=== PATIENT | male | born 1965 | race Hispanic/Latino ===

== ENCOUNTER 2016-07-06 18:57 | Emergency (ER) | payer SELFPAY ==
[2016-07-07] MEDS ORDERED: NORCO 5/325 PO ONE (00:24)
[2016-07-07] MEDS ORDERED: MOTRIN PO ONE (00:24)
--- NOTE | 2016-07-07 00:25 | Emergency Department Report ---
Upper Extremity - [facility] Chief Complaint: Extremity Injury, Upper Stated Complaint: SHOULDER/RIP/INJURY FELL THRW ROOF Time Seen by Provider: 07/07/16 00:23 Upper Extremity: Left Shoulder Occurred When: 5 Days Mechanism: Fall Severity: severe Symptoms: Yes Pain with Movement, Yes Limited Range of Movement, No Deformity, No Numbness, No Weakness, No Swelling, No Bruising/Ecchymosis, No Laceration or Abrasion Other History: Patient reports that he fell through the roof of a tractor- trailer and landed on his left side onto a hardwood floor. He c/o left ribs and left shoulder pain ED Review of Systems ROS: Stated complaint: SHOULDER/RIP/INJURY FELL THRW ROOF Other details as noted in HPI Constitutional: denies: chills, diaphoresis, fever, malaise, weakness Eyes: denies: eye pain, eye discharge, vision change ENT: denies: ear pain, throat pain, dental pain, hearing loss, epistaxis, congestion Respiratory: shortness of breath (with inhaling). denies: cough, orthopnea, SOB with exertion, SOB at rest, stridor, wheezing Cardiovascular: chest pain (left side). denies: palpitations, dyspnea on exertion, orthopnea, edema, syncope, paroxysmal nocturnal dyspnea Gastrointestinal: denies: abdominal pain, nausea, vomiting, diarrhea, constipation Musculoskeletal: arthralgia (left shoulder). denies: back pain, joint swelling , myalgia Skin: denies: rash, lesions, change in color, change in hair/nails, pruritus Neurological: denies: headache, weakness, numbness, paresthesias, confusion, abnormal gait, vertigo Hematological/Lymphatic: denies: easy bleeding, swollen glands ED Past Medical Hx - Medications Home Medications: Home Medications Medication Instructions Recorded Confirmed Last Taken Type HYDROcodone/APAP 5-325 [[place] 1 each PO Q6HR PRN #10 tablet 07/07/16 Unknown Rx 5/325] Ibuprofen [Motrin 800 MG tab] 800 mg PO Q8HR PRN #30 tablet 07/07/16 Unknown Rx Upper Extremity Exam - Exam General: Vital signs noted. No distress. Alert and acting appropriately. Cardio: Heart sounds present S1-S2, no murmur, gallops or ectopy Respiratory: Even and unlabored, lungs clear to auscultate bilateral upper and lower lobes, chest symmetry with respirations, no wheezing, rales or rhonchi Head and Torso: Yes Chest/Lungs Abnormality (reproducible chest wall tenderness with palpation), No HEENT Abnormality, No Neck Tenderness, No Abdominal Tenderness, No Back Tenderness Shoulder Exam: Yes Shoulder Tenderness (left deltoid with palpation), Yes Normal Range of Motion in Shoulder (limited to pain, no vascular compromise, pallor, pulse deficits), No Clavicle Tenderness, No Shoulder Deformity, No AC Joint Tenderness Arm Exam: No Arm/Humerus Tenderness, No Arm Deformity Elbow: No Elbow Tenderness, No Normal Range of Motion in Elbow, No Elbow Deformity Forearm: No Forearm Tenderness, No Forearm Deformity, No Pain with Pronation, No Pain with Supination Wrist: Yes Normal ROM in Wrist, No Wrist Tenderness, No Wrist Deformity, No Snuffbox Tenderness, No Pain with Axial Thumb Compression Hand: Yes Normal ROM in Digit(s), No Hand Tenderness, No Hand Deformity, No Digit Tenderness, No Digit(s) Deformity, No Tendon Dysfunction CMS Exam: No Broken Skin, No Normal Distal Pulses, No Normal Capillary Refill, No Normal Distal Sensation ED Course Vital Signs 07/06/16 19:27 Temperature 98.5 F Pulse Rate 92 H Blood Pressure 175/104 O2 Sat by Pulse 97 Oximetry - Reevaluation(s) Reevaluation #1: 07/07/16 02:30 pain medication, analgesic and radiology studies ordered ED Medical Decision Making - Lab Data Vital Signs 07/06/16 07/07/16 07/07/16 19:27 00:45 00:46 Temperature 98.5 F Pulse Rate 92 H Respiratory 20 20 Rate Blood Pressure 175/104 O2 Sat by Pulse 97 Oximetry Vital Signs 07/06/16 07/07/16 07/07/16 19:27 00:45 00:46 Temperature 98.5 F Pulse Rate 92 H Respiratory 20 20 Rate Blood Pressure 175/104 Blood Pressure [Right] O2 Sat by Pulse 97 Oximetry 07/07/16 03:47 Temperature 97.9 F Pulse Rate 82 Respiratory 20 Rate Blood Pressure Blood Pressure 134/85 [Right] O2 Sat by Pulse 95 Oximetry - Radiology Data Radiology results: image reviewed PROCEDURE: XR RIBS UNILAT 2V LT TECHNIQUE: LEFT rib radiographs, 3 views of the ribs, including PA chest. HISTORY: left rib pain/fall COMPARISON: No prior studies are available for comparison. FINDINGS: Heart: The heart appears slightly enlarged. Mediastinum/Vessels: Normal. Lungs: There is suboptimal inspiration with bilateral discoid atelectasis at the lung bases. There are no infiltrates or contusions. Pleural space: There are no effusions or pneumothoraces. Pneumothorax: None. Bony thorax/ribs: There is a fracture of left rib 8. Ribs are otherwise unremarkable. IMPRESSION: Left 8th rib fracture. There is no pulmonary contusion, effusion or pneumothorax. Left Shoulder XR IMPRESSION: Normal Examination - Medical Decision Making During the course of ED, pain medication, analgesics and radiology studies were ordered. Imaging studies revealed left 8th rib fracture. There is no pulmonary contusion, effusion or pneumothorax. Also, left shoulder x-ray revealed no acute fractures. Patient was sent home with instructions on how to use her incentive spirometer 10 times a day, prescriptions for [place] and Ibuprofen, instructed to follow with selective referrals given at discharge, he verbalize understanding - Differential Diagnosis Left rib fracture, Pulmonary Contusion, Left Shoulder Pain Critical care attestation.: If time is entered above; I have spent that time in minutes in the direct care of this critically ill patient, excluding procedure time. ED Disposition Clinical Impression: Left rib fracture Qualifiers: Encounter type: initial encounter Rib fracture type: single rib Fracture type: closed Qualified Code(s): S22.32XA - Fracture of one rib, left side, initial encounter for closed fracture Left shoulder pain Qualifiers: Chronicity: acute Qualified Code(s): M25.512 - Pain in left shoulder Disposition: DISCHARGED TO HOME OR SELFCARE Is pt being admited?: No Does the pt Need Aspirin: No Condition: Stable Instructions: Rib Fracture (ED), Arthralgia (ED) Additional Instructions: Take medication as directed. No drinking and driving while taking medication. Use the incentive spirometer 10 times a day in order to prevent infection. Follow with the selective referrals given at discharge. Return back to the ED for worsening symptoms or concerns such as shortness of breath, increased pain, and adequate pain control, fever or cough. Prescriptions: Ibuprofen [Motrin 800 MG tab] 800 mg PO Q8HR PRN #30 tablet PRN Reason: Pain, Moderate (4-6) HYDROcodone/APAP 5-325 [[place] 5/325] 1 each PO Q6HR PRN #10 tablet PRN Reason: Pain , Severe (7-10) Referrals: PRIMARY CARE, [Primary Care Provider] - 3-5 Days [facility] MD [Staff Physician] - 3-5 Days Forms: Work/School Release Form(ED) Time of Disposition: 02:43
--- NOTE | 2016-07-07 02:21 | XRay Report ---
FINAL REPORT PROCEDURE: XR RIBS UNILAT 2V LT TECHNIQUE: LEFT rib radiographs, 3 views of the ribs, including PA chest. HISTORY: left rib pain/fall COMPARISON: No prior studies are available for comparison. FINDINGS: Heart: The heart appears slightly enlarged. Mediastinum/Vessels: Normal. Lungs: There is suboptimal inspiration with bilateral discoid atelectasis at the lung bases. There are no infiltrates or contusions. Pleural space: There are no effusions or pneumothoraces. Pneumothorax: None. Bony thorax/ribs: There is a fracture of left rib 8. Ribs are otherwise unremarkable. IMPRESSION: Left 8th rib fracture. There is no pulmonary contusion, effusion or pneumothorax.
--- NOTE | 2016-07-07 02:25 | XRay Report ---
FINAL REPORT PROCEDURE: XR SHOULDER 2 LT TECHNIQUE: Left shoulder radiographs including AP views in internal and external rotation and abduction. CPT 23389 HISTORY: left shoulder pain/fall COMPARISON: No prior studies are available for comparison. FINDINGS: Fracture (s) and/or Dislocation(s): None . Joint space(s): Normal . Soft tissues: Normal . Bone mineralization: Normal . Foreign bodies: None . IMPRESSION: Normal Examination
[2016-07-07 03:50] VITALS: BP 134/85
== END 2016-07-07 03:55 | disposition home or self-care (01) ==
LOC: ED 18:57
DX: S22.32XA Fracture of one rib, left side, initial encounter for closed fracture (principal); M25.512 Pain in left shoulder; W17.89XA Other fall from one level to another, initial encounter; Y93.9 Activity, unspecified; Y99.9 Unspecified external cause status; Y92.89 Other specified places as the place of occurrence of the external cause
CPT/HCPCS: 99283

== ENCOUNTER 2017-10-02 05:03 | Emergency (ER) | payer OTHER ==
--- NOTE | 2017-10-02 10:33 | Emergency Department Report ---
ED General Adult HPI - General Chief complaint: Upper Respiratory Infection Stated complaint: FLU SYMPTOMS Time Seen by Provider: 10/02/17 10:09 Source: patient Mode of arrival: Ambulatory Limitations: No Limitations - History of Present Illness Initial comments: This is a 52 y.o. male that presents with productive cough, diarrhea, nausea, chills, and body aches for 2 weeks. Patient reports symptoms started 2 weeks ago and improved with advil. His spouse had the flu and he think he caught it from her. He has not tried taking OTC cold and flu medication. He is having generalized abdominal pain with cramping during bowel movements. Denies fever, SOB, chest pain, vomiting, diarrhea odor, and weakness. -: week(s) (2) Location: abdomen (generalized) Radiation: non-radiation Severity scale (0 -10): 6 Quality: aching, other (cramping) Consistency: intermittent Improves with: other (bowel movement) Worsens with: none Associated Symptoms: cough, fever/chills, nausea/vomiting (nausea w/o vomiting) . denies: confusion, chest pain, diaphoresis, headaches, loss of appetite, malaise, rash, seizure, shortness of breath, syncope, weakness Treatments Prior to Arrival: NSAID - Related Data Previous Rx's Medication Instructions Recorded Last Taken Type HYDROcodone/APAP 5-325 [[place] 1 each PO Q6HR PRN #10 tablet 07/07/16 Unknown Rx 5/325] Ibuprofen [Motrin 800 MG tab] 800 mg PO Q8HR PRN #30 tablet 07/07/16 Unknown Rx Benzonatate [Tessalon Perles] 100 mg PO Q8HR PRN #30 capsule 10/02/17 Unknown Rx Loperamide HCl [Imodium A-D] 2 mg PO TID PRN #15 tablet 10/02/17 Unknown Rx Loratadine [Claritin] 10 mg PO DAILY #30 tablet 10/02/17 Unknown Rx Allergies Allergy/AdvReac Type Severity Reaction Status Date / Time No Known Allergies Allergy Verified 07/06/16 19:27 ED Review of Systems ROS: Stated complaint: FLU SYMPTOMS Other details as noted in HPI Constitutional: chills, fever. denies: malaise, weakness ENT: congestion. denies: ear pain, throat pain, dental pain, hearing loss, epistaxis Respiratory: cough. denies: orthopnea, shortness of breath, stridor, wheezing Cardiovascular: denies: chest pain, palpitations, dyspnea on exertion, orthopnea , syncope Gastrointestinal: abdominal pain (generalized), nausea. denies: vomiting, diarrhea Musculoskeletal: myalgia (generalized body aches). denies: back pain, joint swelling, arthralgia Neurological: denies: headache, weakness, numbness, paresthesias, abnormal gait Psychiatric: denies: anxiety, depression ED Past Medical Hx - Past Medical History Previous Medical History?: No - Surgical History Past Surgical History?: No - Social History Smoking Status: Current Every Day Smoker - Medications Home Medications: Home Medications Medication Instructions Recorded Confirmed Last Taken Type HYDROcodone/APAP 5-325 [[place] 1 each PO Q6HR PRN #10 tablet 07/07/16 Unknown Rx 5/325] Ibuprofen [Motrin 800 MG tab] 800 mg PO Q8HR PRN #30 tablet 07/07/16 Unknown Rx Benzonatate [Tessalon Perles] 100 mg PO Q8HR PRN #30 capsule 10/02/17 Unknown Rx Loperamide HCl [Imodium A-D] 2 mg PO TID PRN #15 tablet 10/02/17 Unknown Rx Loratadine [Claritin] 10 mg PO DAILY #30 tablet 10/02/17 Unknown Rx ED Physical Exam - General Limitations: No Limitations General appearance: alert, in no apparent distress - ENT ENT exam: Present: mucous membranes moist, TM's normal bilaterally. Absent: normal orophraynx (turbinates congested, clear discharge) - Respiratory Respiratory exam: Present: normal lung sounds bilaterally. Absent: respiratory distress, wheezes, rales, rhonchi, stridor, chest wall tenderness - Cardiovascular Cardiovascular Exam: Present: regular rate, normal rhythm, normal heart sounds. Absent: bradycardia, tachycardia, irregular rhythm, systolic murmur, diastolic murmur, rubs, gallop - GI/Abdominal GI/Abdominal exam: Present: soft, tenderness (RLQ tenderness, no guarding or rebound tenderness), normal bowel sounds. Absent: distended, guarding, rebound , rigid, organomegaly, mass - Neurological Exam Neurological exam: Present: alert, oriented X3, normal gait - Psychiatric Psychiatric exam: Present: normal affect, normal mood. Absent: depressed, anxious, flat affect, manic - Skin Skin exam: Present: warm, dry, intact, normal color. Absent: rash ED Course Vital Signs 10/02/17 10/02/17 07:22 09:52 Temperature 96.8 F L Pulse Rate 80 77 Respiratory 18 18 Rate Blood Pressure 130/86 Blood Pressure 140/84 [Right] O2 Sat by Pulse 98 99 Oximetry ED Medical Decision Making - Lab Data Result diagrams: 10/02/17 10:37 10/02/17 10:37 - Radiology Data Radiology results: report reviewed CT of abdomen/pelvis: Cholelithiasis but no evidence for acute cholecystitis. Mild sigmoid diverticulosis. - Medical Decision Making 52 y.o. male that presents with cough, congestion, body aches, chills, and generalized abdominal pain for 2 weeks. Patient examined by me, no distress noted. Vitals stable. Obtained BMP, CBC and CT of abdomen and pelvis. Patient informed of Cholelithiasis but no evidence for acute cholecystitis. Mild sigmoid diverticulosis. Start benzonatate, loperimide, and loratadine for URI and acute gastroenteritis. F/U with [facility]. Discharged home. Follow up with [facility] in 48-72 hours. Critical care attestation.: If time is entered above; I have spent that time in minutes in the direct care of this critically ill patient, excluding procedure time. ED Disposition Clinical Impression: Gastroenteritis URI (upper respiratory infection) Qualifiers: URI type: acute nasopharyngitis (common cold) Qualified Code(s): J00 - Acute nasopharyngitis [common cold] Diverticulosis Qualifiers: Diverticulosis site: diverticulosis of large intestine Diverticulosis bleeding : diverticulosis without bleeding Qualified Code(s): K57.30 - Diverticulosis of large intestine without perforation or abscess without bleeding Disposition: DC-01 TO HOME OR SELFCARE Is pt being admited?: No Does the pt Need Aspirin: No Condition: Stable Instructions: Diverticulosis (ED), Acute Diarrhea (ED), Upper Respiratory Infection (ED) Additional Instructions: Increase fluid intake and rest. Wash hands frequently. Continue taking tylenol or ibuprofen to control fever. Take imodium A-D for diarrhea to help bulk. F/U with Primary Care Provider in 2-3 days. Return to ER if fever, SOB, or difficulty breathing after 48 hours of supportive care. Prescriptions: Benzonatate [Tessalon Perles] 100 mg PO Q8HR PRN #30 capsule PRN Reason: Cough Loperamide HCl [Imodium A-D] 2 mg PO TID PRN #15 tablet PRN Reason: Diarrhea Loratadine [Claritin] 10 mg PO DAILY #30 tablet Referrals: PRIMARY CARE,MD [Primary Care Provider] - 3-5 Days [facility] [Outside] - 3-5 Days [facility] [Outside] - 3-5 Days [facility] [Outside] - 3-5 Days Forms: Work/School Release Form(ED) Time of Disposition: 12:05 Print Language: LATVIAN
[2017-10-02 10:52] LABS: Hematocrit 48.6 % (35.5-45.6); Hemoglobin 15.8 gm/dl (11.8-15.2); Mean Corpuscular HGB Conc 32 % (32-34); Mean Corpuscular Hemoglobin 30 pg (28-32); Mean Corpuscular Volume 92 fl (84-94); Platelet Count 283 K/mm3 (140-440); Red Cell Distribution Width 13.7 % (13.2-15.2)
[2017-10-02 11:06] LABS: BUN/Creatinine Ratio 26; Blood Urea Nitrogen 13 mg/dL (9-20); Hemolysis Index 18
--- NOTE | 2017-10-02 11:09 | Cat Scan Report ---
CT ABDOMEN PELVIS WITHOUT CONTRAST: HISTORY: Right lower quadrant abdominal pain, diarrhea. COMPARISON: none. TECHNIQUE: Helical CT in 1.25mm intervals without IV contrast. Sagittal and coronal reconstructions. FINDINGS: Lung bases: Normal. Liver: Normal. Biliary system: At least 3 calcified gallstones are identified measuring up to 1.8 cm. No evidence for biliary dilatation or inflammation. The CBD is normal caliber. Pancreas: Normal. Spleen: Normal. Kidneys/ureters/bladder: Normal. Adrenal glands: Normal. Aorta: Normal. Intestines: Unremarkable given no oral contrast was administered. Minimal sigmoid diverticulosis is noted. Appendix: Normal. Pelvic viscera: Normal. Ascites: None. Adenopathy: None. Musculoskeletal: Normal. IMPRESSION: Cholelithiasis but no evidence for acute cholecystitis. Mild sigmoid diverticulosis.
[2017-10-02 12:20] VITALS: BP 134/86
== END 2017-10-02 12:20 | disposition home or self-care (01) ==
LOC: ED 05:03
DX: K52.9 Noninfective gastroenteritis and colitis, unspecified (principal); J06.9 Acute upper respiratory infection, unspecified; K57.90 Diverticulosis of intestine, part unspecified, without perforation or abscess without bleeding; F17.200 Nicotine dependence, unspecified, uncomplicated
CPT/HCPCS: 36415; 74176; 80048; 85027

== ENCOUNTER 2019-06-05 08:38 | Emergency (ER) | payer OTHER ==
[2019-06-05] MEDS ORDERED: IPRATROPIUM/ALBUTEROL SULFATE 3 ML AMPUL.NEB IH ONE (09:04)
--- NOTE | 2019-06-05 09:11 | Emergency Department Report ---
ED General Adult HPI - General Chief complaint: Weakness Stated complaint: WEAK/BODY PAIN Time Seen by Provider: 06/05/19 08:56 Source: patient Mode of arrival: Ambulatory Limitations: No Limitations - History of Present Illness Initial comments: Patient is a 53-year-old male presents emergency room with complaints of generalized body aches that began 2 days ago. He has associated generalized weakness, cramping in his bilateral hands, congestion, mild shortness of breath. He denies any fever, cough, rhinorrhea, chest pain, ear pain, sore throat, any other symptoms. He denies any sick contacts. He denies any past medical history or allergies medications. patient states he is an every day smoker one pack per day. He denies any alcohol use. - Related Data Previous Rx's Medication Instructions Recorded Last Taken Type HYDROcodone/APAP 5-325 [[place] 1 each PO Q6HR PRN #10 tablet 07/07/16 Unknown Rx 5/325] Ibuprofen [Motrin 800 MG tab] 800 mg PO Q8HR PRN #30 tablet 07/07/16 Unknown Rx Benzonatate [Tessalon Perles] 100 mg PO Q8HR PRN #30 capsule 10/02/17 Unknown Rx Loperamide HCl [Imodium A-D] 2 mg PO TID PRN #15 tablet 10/02/17 Unknown Rx Loratadine [Claritin] 10 mg PO DAILY #30 tablet 10/02/17 Unknown Rx Allergies Allergy/AdvReac Type Severity Reaction Status Date / Time No Known Allergies Allergy Verified 07/06/16 19:27 ED Review of Systems ROS: Stated complaint: WEAK/BODY PAIN Other details as noted in HPI Comment: All other systems reviewed and negative ED Past Medical Hx - Past Medical History Previous Medical History?: No - Surgical History Past Surgical History?: No - Social History Smoking Status: Current Every Day Smoker Substance Use Type: None - Medications Home Medications: Home Medications Medication Instructions Recorded Confirmed Last Taken Type HYDROcodone/APAP 5-325 [[place] 1 each PO Q6HR PRN #10 tablet 07/07/16 Unknown Rx 5/325] Ibuprofen [Motrin 800 MG tab] 800 mg PO Q8HR PRN #30 tablet 07/07/16 Unknown Rx Benzonatate [Tessalon Perles] 100 mg PO Q8HR PRN #30 capsule 10/02/17 Unknown Rx Loperamide HCl [Imodium A-D] 2 mg PO TID PRN #15 tablet 10/02/17 Unknown Rx Loratadine [Claritin] 10 mg PO DAILY #30 tablet 10/02/17 Unknown Rx ED Physical Exam - General Limitations: No Limitations General appearance: alert, in no apparent distress - Head Head exam: Present: atraumatic, normocephalic - Eye Eye exam: Present: normal appearance - ENT ENT exam: Present: normal orophraynx, mucous membranes moist, TM's normal bilaterally, normal external ear exam, other (pale turbinates bilaterally) - Neck Neck exam: Present: full ROM. Absent: meningismus - Respiratory Respiratory exam: Present: normal lung sounds bilaterally, decreased breath sounds (slightly decreased throughout). Absent: respiratory distress, wheezes, rales, rhonchi, stridor, chest wall tenderness, accessory muscle use, prolonged expiratory - Cardiovascular Cardiovascular Exam: Present: regular rate, normal rhythm, normal heart sounds. Absent: systolic murmur, diastolic murmur, rubs, gallop - Neurological Exam Neurological exam: Present: alert, oriented X3 - Psychiatric Psychiatric exam: Present: normal affect, normal mood - Skin Skin exam: Present: warm, dry, intact ED Course Vital Signs 06/05/19 06/05/19 08:43 10:59 Temperature 97.7 F 98.0 F Pulse Rate 80 83 Respiratory 15 20 Rate Blood Pressure 165/90 Blood Pressure 148/88 [Right] O2 Sat by Pulse 97 98 Oximetry - Reevaluation(s) Reevaluation #1: 06/05/19 10:19 called the lab awaiting flu swab results, swab was sent by al at 9:04 AM ED Medical Decision Making - Lab Data Result diagrams: 06/05/19 09:07 06/05/19 09:07 Lab Results 06/05/19 06/05/19 06/05/19 Range/Units 09:07 09:07 Unknown WBC 8.5 (4.5-11.0) K/mm3 RBC 5.06 H (3.65-5.03) M/mm3 Hgb 15.6 H (11.8-15.2) gm/dl Hct 46.3 H (35.5-45.6) % MCV 92 (84-94) fl MCH 31 (28-32) pg MCHC 34 (32-34) % RDW 14.1 (13.2-15.2) % Plt Count 208 (140-440) K/mm3 Lymph % (Auto) 21.5 (13.4-35.0) % [place] % (Auto) 5.9 (0.0-7.3) % Eos % (Auto) 2.4 (0.0-4.3) % Baso % (Auto) 0.6 (0.0-1.8) % Lymph # 1.8 (1.2-5.4) K/mm3 [place] # 0.5 (0.0-0.8) K/mm3 Eos # 0.2 (0.0-0.4) K/mm3 Baso # 0.1 (0.0-0.1) K/mm3 Seg Neutrophils % 69.6 (40.0-70.0) % Seg Neutrophils # 5.9 (1.8-7.7) K/mm3 Sodium 138 (137-145) mmol/L Potassium 4.2 (3.6-5.0) mmol/L Chloride 101.3 (98-107) mmol/L Carbon Dioxide 22 (22-30) mmol/L Anion Gap 19 mmol/L BUN 10 (9-20) mg/dL Creatinine 0.6 L (0.8-1.5) mg/dL Estimated GFR > 60 ml/min BUN/Creatinine Ratio 17 % Glucose 88 (75-100) mg/dL Calcium 9.0 (8.4-10.2) mg/dL Phosphorus 3.10 (2.5-4.5) mg/dL Magnesium 2.20 (1.7-2.3) mg/dL Total Creatine Kinase 98 (55-170) units/L Influenza A (Rapid) Negative (Negative) Influenza B (Rapid) Negative (Negative) - Medical Decision Making Patient is a 53-year-old male presents emergency room with complaints of generalized body aches that began 2 days ago. He has associated generalized weakness, cramping in his bilateral hands, congestion, mild shortness of breath. He denies any fever, cough, rhinorrhea, chest pain, ear pain, sore throat, any other symptoms. He denies any sick contacts. He denies any past medical history or allergies medications. patient states he is an every day smoker one pack per day. He denies any alcohol use. Vitals are stable. On exam pale turbinates, mildly decreased breath sounds throughout. Patient given a DuoNeb and patient has good air movement. Labs are stable. CK is normal no signs of rhabdomyolysis. Electrolytes are normal. Influenza is negative. no clinical signs or symptoms of PNA, pt has normal vitals, no leukocytosis, no productive cough. wells criteria is 0 making PE very unlikely. Patient's symptoms and examination consistent with viral URI. Discussed symptomatic treatment and supportive care with patient. advised pt to Please increase your fluid intake over the next several days. May take Zyrtec, Flonase, Mucinex [id number]. May take Tylenol or ibuprofen for any discomfort. May use a humidifier, drink warm tea, eat warm soup broth. Follow-up with a primary care doctor in the next 2-3 days. Return to the emergency room for any new or worsening symptoms. - Differential Diagnosis rhabdomyolysis, dehydration, electrolyte disturbance, influenza, URI, virus Critical care attestation.: If time is entered above; I have spent that time in minutes in the direct care of this critically ill patient, excluding procedure time. ED Disposition Clinical Impression: Generalized body aches, Generalized weakness Upper respiratory infection Qualifiers: URI type: unspecified URI Qualified Code(s): J06.9 - Acute upper respiratory infection, unspecified Disposition: DC-01 TO HOME OR SELFCARE Is pt being admited?: No Does the pt Need Aspirin: No Condition: Stable Instructions: Upper Respiratory Infection (ED), Viral Syndrome (ED) Additional Instructions: Please increase your fluid intake over the next several days. May take Zyrtec, Flonase, Mucinex [id number]. May take Tylenol or ibuprofen for any discomfort. May use a humidifier, drink warm tea, eat warm soup broth. Follow- up with a primary care doctor in the next 2-3 days. Return to the emergency room for any new or worsening symptoms. Referrals: ELEUTERIO FIGUEREDO MD [Staff Physician] - 2-3 Days [facility] [Provider Group] - 2-3 Days Forms: Work/School Release Form(ED) Time of Disposition: 10:43 Print Language: EMIRATI
[2019-06-05 09:25] LABS: Basophils # (Auto) 0.1 K/mm3 (0.0-0.1); Basophils % (Auto) 0.6 % (0.0-1.8); Eosinophils # (Auto) 0.2 K/mm3 (0.0-0.4); Eosinophils % (Auto) 2.4 % (0.0-4.3); Hematocrit 46.3 % (35.5-45.6); Hemoglobin 15.6 gm/dl (11.8-15.2); Lymphocytes # (Auto) 1.8 K/mm3 (1.2-5.4); Lymphocytes % (Auto) 21.5 % (13.4-35.0); Mean Corpuscular HGB Conc 34 % (32-34); Mean Corpuscular Volume 92 fl (84-94); Monocytes # (Auto) 0.5 K/mm3 (0.0-0.8); Monocytes % (Auto) 5.9 % (0.0-7.3); Platelet Count 208 K/mm3 (140-440); Red Blood Count 5.06 M/mm3 (3.65-5.03); Red Cell Distribution Width 14.1 % (13.2-15.2)
[2019-06-05 09:46] LABS: BUN/Creatinine Ratio 17; Blood Urea Nitrogen 10 mg/dL (9-20); Hemolysis Index 5
[2019-06-05 11:01] VITALS: BP 148/88
== END 2019-06-05 10:59 | disposition home or self-care (01) ==
LOC: ED 08:38
DX: J06.9 Acute upper respiratory infection, unspecified (principal); F17.200 Nicotine dependence, unspecified, uncomplicated
CPT/HCPCS: 36415; 80048; 82550; 83735; 84100; 85025; 87400; 99283

== ENCOUNTER 2020-08-23 07:07 | Emergency (ER) | payer OTHER ==
[2020-08-23] MEDS ORDERED: SODIUM CHLORIDE 0.9% 1000 ML 1,000 ML IV ONE (07:45)
[2020-08-23] MEDS ORDERED: ONDANSETRON 4 MG/2 ML INJ IV ONE (07:45)
[2020-08-23] MEDS ORDERED: FAMOTIDINE 20 MG TAB PO ONE (07:46)
[2020-08-23] MEDS ORDERED: ALUM-MAG HYDROXIDE-SIMETHICONE 200-200-20MG/5ML ORAL LIQD 30 ML PO ONE (07:47)
--- NOTE | 2020-08-23 07:48 | Emergency Department Report ---
ED Abdominal Pain HPI - General Chief Complaint: Abdominal Pain Stated Complaint: ABD PAIN/EMESIS/DIARRHEA Time Seen by Provider: 08/23/20 07:45 Source: patient Mode of arrival: Ambulatory Limitations: No Limitations - History of Present Illness Initial Comments: 55-year-old male with a past medical history of hypertension presents to the ER today complaint of epigastric pain. Patient states that has been having this pain intermittently for about 2 weeks. He describes it as a pressure/heaviness/stabbing pain that radiates into the back. He reports associated nausea, vomiting, diarrhea and a bitter taste in his mouth. He states that the pain is worse with food. he denies any chest pain or shortness of breath. He denies any UTI symptoms, fever or chills. He denies any prior history of abdominal surgeries. He does admit to tobacco use and denies alcohol abuse. He also admits to noncompliance with his blood pressure medication for the past 5 years. He denies any heart disease or lung disease MD Complaint: abdominal pain -: Gradual, week(s) (2) Location: epigastric Radiation: back - Related Data Previous Rx's Medication Instructions Recorded Last Taken Type Ibuprofen [Motrin 800 MG tab] 800 mg PO Q8HR PRN #30 tablet 07/07/16 Unknown Rx Benzonatate [Tessalon Perles] 100 mg PO Q8HR PRN #30 capsule 10/02/17 Unknown Rx Loperamide HCl [Imodium A-D] 2 mg PO TID PRN #15 tablet 10/02/17 Unknown Rx Loratadine (Nf) [Claritin (Nf)] 10 mg PO DAILY #30 tablet 10/02/17 Unknown Rx Clotrimazole/Betamethasone Dip 1 applicatio TP BID 10 Days #45 08/23/20 Unknown Rx [Lotrisone Cream] cream..g. Famotidine [Pepcid] 40 mg PO QHS #30 tablet 08/23/20 Unknown Rx HYDROcodone/APAP 5-325 [Cruger 1 each PO Q6HR PRN #10 tablet 08/23/20 Unknown Rx 5-325 mg TAB] Ondansetron [Zofran Odt] 4 mg PO Q8HR PRN #12 tab.rapdis 08/23/20 Unknown Rx Allergies Allergy/AdvReac Type Severity Reaction Status Date / Time No Known Allergies Allergy Verified 07/06/16 19:27 ED Review of Systems ROS: Stated complaint: ABD PAIN/EMESIS/DIARRHEA Other details as noted in HPI Comment: All other systems reviewed and negative Respiratory: denies: cough, shortness of breath, wheezing Cardiovascular: denies: chest pain, palpitations Gastrointestinal: abdominal pain, nausea, vomiting, diarrhea Genitourinary: denies: urgency, dysuria Musculoskeletal: denies: back pain, joint swelling, arthralgia Skin: denies: rash, lesions Psychiatric: denies: anxiety, depression Hematological/Lymphatic: denies: easy bleeding, easy bruising ED Past Medical Hx - Past Medical History Previous Medical History?: Yes Hx Hypertension: Yes - Surgical History Past Surgical History?: No - Social History Smoking Status: Current Every Day Smoker Substance Use Type: None - Medications Home Medications: Home Medications Medication Instructions Recorded Confirmed Last Taken Type Ibuprofen [Motrin 800 MG tab] 800 mg PO Q8HR PRN #30 tablet 07/07/16 Unknown Rx Benzonatate [Tessalon Perles] 100 mg PO Q8HR PRN #30 capsule 10/02/17 Unknown Rx Loperamide HCl [Imodium A-D] 2 mg PO TID PRN #15 tablet 10/02/17 Unknown Rx Loratadine (Nf) [Claritin (Nf)] 10 mg PO DAILY #30 tablet 10/02/17 Unknown Rx Clotrimazole/Betamethasone Dip 1 applicatio TP BID 10 Days #45 08/23/20 Unknown Rx [Lotrisone Cream] cream..g. Famotidine [Pepcid] 40 mg PO QHS #30 tablet 08/23/20 Unknown Rx HYDROcodone/APAP 5-325 [Cruger 1 each PO Q6HR PRN #10 tablet 08/23/20 Unknown Rx 5-325 mg TAB] Ondansetron [Zofran Odt] 4 mg PO Q8HR PRN #12 tab.rapdis 08/23/20 Unknown Rx ED Physical Exam - General Limitations: No Limitations General appearance: alert, in no apparent distress, obese - Head Head exam: Present: atraumatic, normocephalic, normal inspection - Eye Eye exam: Present: normal appearance, PERRL, EOMI Pupils: Present: normal accommodation - Neck Neck exam: Present: normal inspection, full ROM - Respiratory Respiratory exam: Present: normal lung sounds bilaterally. Absent: respiratory distress - Cardiovascular Cardiovascular Exam: Present: regular rate, normal rhythm, normal heart sounds - GI/Abdominal GI/Abdominal exam: Present: soft, tenderness (Moderate, epigastric and left upper quadrant). Absent: distended, guarding, rebound - Back Exam Back exam: Present: normal inspection - Neurological Exam Neurological exam: Present: alert, oriented X3, CN II-XII intact, normal gait - Psychiatric Psychiatric exam: Present: normal affect, normal mood - Skin Skin exam: Present: rash (erythematous maculopapular rash with well demarcated borders and satellite lessions noted to right axillar and right lateral chest.) ED Course Vital Signs 08/23/20 08/23/20 08/23/20 07:47 08:15 08:20 Temperature 97.5 F L Pulse Rate 90 71 Respiratory 18 14 22 Rate Blood Pressure 150/91 Blood Pressure [Left] O2 Sat by Pulse 98 98 Oximetry 08/23/20 08/23/20 08/23/20 08:28 10:01 13:44 Temperature 97.8 F Pulse Rate 89 88 78 Respiratory 14 21 17 Rate Blood Pressure 155/95 Blood Pressure 145/94 175/105 [Left] O2 Sat by Pulse 98 98 98 Oximetry - Reevaluation(s) Reevaluation #1: 08/23/20 13:25 Patient sitting up in the bed, currently watching something on his phone; he reports improvement of his pain and his nausea after meds. Repeat abdominal exam shows soft nontender abdomen. Discussed imaging results with patient as well as lab work results. CT abdomen pelvis showedAbnormal appearance of the region of the gallbladder fossa and gallbladder. Gallbladder appears contracted with surrounding inflammation and wall thickening. A follow-up gallbladder ultrasound is recommended for further evaluation for cholecystitis. 2. No other acute findings are identified. The gallbladder ultrasound shows a contracted gallbladder filled with stones but no evidence of acute cholecystitis on ultrasound. His white count is also normal as well as his LFTs and lipase also normal. At this time there is no indication for emergent surgical intervention. Patient instructed to follow-up with general surgeon on an outpatient basis. Diet changes discussed with patient. At the time of discharge patient complains of this erythematous pruritic rash to his right axilla which started about 2 weeks ago. He states he was concerned it was related to his abdominal pain. He denies any new lotions, soaps, or any other new contacts. Examination of the rash is concerning for fungal infection. Discussed suspected diagnosis with patient. He will be given topical cream to apply to the area. Patient expressed understanding of these instructions and agree with plan. He understands the importance of follow-up with the general surgeon. He understands to return if the symptoms worsens or changes. patient was stable at time of discharge. ED Medical Decision Making - Lab Data Result diagrams: 08/23/20 07:51 08/23/20 07:51 - EKG Data EKG shows normal: sinus rhythm Rate: normal (86) - EKG Data Interpretation: no acute changes - Radiology Data Radiology results: report reviewed - Medical Decision Making [facility] [address] [place] [address] Cat Scan Report Signed Patient: LYLE ELLSWORTH MR#: [id number] : 1965 Acct:[id number] Age/Sex: 55 / M ADM Date: 08/23/20 Loc: ED Attending Dr: Ordering Physician: ERNESTO GUERRERO Date of Service: 08/23/20 Procedure(s): CT abdomen pelvis w con Accession Number(s): [id number] cc: ERNESTO GUERRERO CT ABDOMEN AND PELVIS WITH CONTRAST HISTORY: Abdominal Pain /upper abd pain. COMPARISON: 10/02/2017 TECHNIQUE: CT images of the abdomen and pelvis were obtained following administration of intravenous contrast. All CT scans at this location are performed using CT dose reduction for ALARA by means of automated exposure control. CONTRAST: 100 ml of intravenous contrast administered. FINDINGS: Lungs/bones: Chronic changes are seen in the lung bases without focal consolidation. Abdomen/pelvis: Hypodensity in the expected region of the gallbladder could represent a contracted gallbladder or possibly gallbladder with thickened luis with surrounding inflammation best seen on axial image 77. Surrounding liver appears normal. Spleen, adrenal glands, pancreas and upper GI tract appear normal. Appendix appears normal. No evidence for bowel obstruction. No dominant adenopathy is seen. Celiac and SMA appear patent. Bilateral kidneys appear normal without hydronephrosis. Urinary bladder is contracted and evaluation of the bladder wall is limited. Degenerative changes seen throughout spine. Coronary artery disease. IMPRESSION: 1. Abnormal appearance of the region of the gallbladder fossa and gallbladder. Gallbladder appears contracted with surrounding inflammation and wall thickening. A follow-up gallbladder ultrasound is recommended for further evaluation for cholecystitis. 2. No other acute findings are identified. Signer Name: Saul Wang MD Signed: 08/23/2020 10:27 AM Workstation Name: [id number] Transcribed By: LAURA Dictated By: COOKIE WANG MD Electronically Authenticated By: COOKIE WANG MD Signed Date/Time: 08/23/20 1027 DD/ 1024 TD/TT: Referring Physician:ERNESTO GUERREROPatient Name:LYLE ELLSWORTHPatient ID:[id number] of :[id number]:MaleAccession:[id number] Date:5043-26-62Dnhmcl Status:Finalized Findings [facility] [address] [place] [address] XRay Report Signed Patient: LYLE ELLSWORTH MR#: [id number] : 1965 Acct:[id number] Age/Sex: 55 / M ADM Date: 08/23/20 Loc: ED Attending Dr: Ordering Physician: ERNESTO GUERRERO Date of Service: 08/23/20 Procedure(s): XR chest 1V ap Accession Number(s): [id number] cc: ERNESTO GUERRERO Fluoro Time In Minutes: CHEST 1 VIEW 08/23/2020 8:43 AM INDICATION / CLINICAL INFORMATION: Abdominal Pain /epigastric. COMPARISON: None available. FINDINGS: SUPPORT DEVICES: None. HEART / MEDIASTINUM: No significant abnormality. LUNGS / PLEURA: No significant pulmonary or pleural abnormality. No pneumothorax. ADDITIONAL FINDINGS: No significant additional findings. IMPRESSION: 1. No acute findings. Signer Name: Norberto Lee MD Signed: 08/23/2020 9:47 AM Workstation Name: [id number] Transcribed By: DAO Dictated By: Norberto Lee MD Electronically Authenticated By: Norberto Lee MD Signed Date/Time: 08/23/20 0947 DD/ 0946 TD/TT: Referring Physician:ERNESTO GUERREROPatient Name:LYLE ELLSWORTHPatient ID:[id number] of :[id number]:MaleAccession:[id number] Date:6033-04-16Jbwvyz Status:Finalized Findings [facility] [address] [place] [address] Ultrasound Report Signed Patient: LYLE ELLSWORTH MR#: [id number] : 1965 Acct:[id number] Age/Sex: 55 / M ADM Date: 08/23/20 Loc: ED Attending Dr: Ordering Physician: ERNESTO GUERRERO Date of Service: 08/23/20 Procedure(s): US abdomen limited Accession Number(s): [id number] cc: ERNESTO GUERRERO US abdomen limited INDICATION / CLINICAL INFORMATION: epigastric pain/concern for cholecystitis on CT. COMPARISON: CT done earlier today FINDINGS: Hepatic echogenicity is increased, consistent with hepatic steatosis. A normal gallbladder is not identified. In the region of the gallbladder fossa, there is an area of its echogenicity with posterior shadowing, quite possibly a contracted gallbladder filled with stones. This correlates with the findings on CT. Common duct is normal in size. IMPRESSION: 1. Findings are very suggestive of contracted gallbladder filled with stones. Signer Name: Rodney Ramachandran MD Signed: 08/23/2020 1:08 PM Workstation Name: [id number] Transcribed By: TM Dictated By: Rodney Ramachandran MD Electronically Authenticated By: Rodney Ramachandran MD Signed Date/Time: 08/23/20 1308 DD/ 1304 TD/TT: Critical care attestation.: If time is entered above; I have spent that time in minutes in the direct care of this critically ill patient, excluding procedure time. ED Disposition Clinical Impression: Gallstones, Tinea corporis Disposition: DC-01 TO HOME OR SELFCARE Is pt being admited?: No Does the pt Need Aspirin: No Condition: Stable Instructions: Cholelithiasis, Skin Yeast Infection Additional Instructions: Take the medication as prescribed for pain and nausea and use the topical cream to help with the rash. Follow-up with the general surgeon listed on your discharge instructions. It is important that you try to avoid fried fatty greasy foods as this can cause you to have pain related to your gallbladder. Return to the ER if your pain is worsens, and you develop fever or chills. If your rash does not get better I recommend follow-up with the night custodian. Prescriptions: Famotidine [Pepcid] 40 mg PO QHS #30 tablet Clotrimazole/Betamethasone Dip [Lotrisone Cream] 1 applicatio TP BID 10 Days #45 cream..g. HYDROcodone/APAP 5-325 [Cruger 5-325 mg TAB] 1 each PO Q6HR PRN #10 tablet PRN Reason: Pain , Severe (7-10) Ondansetron [Zofran Odt] 4 mg PO Q8HR PRN #12 tab.rapdis PRN Reason: Vomiting Referrals: ELEUTERIO FIGUEREDO MD [Staff Physician] - 3-5 Days ANNABEL ANDERS DO [Staff Physician] - 2-3 Days Forms: Work/School Release Form(ED) Time of Disposition: 13:33
[2020-08-23 09:27] LABS: Basophils % (Auto) 0.5 % (0.0-1.8); Eosinophils # (Auto) 0.3 K/mm3 (0.0-0.4); Eosinophils % (Auto) 3.5 % (0.0-4.3); Hemoglobin 14.4 gm/dl (11.8-15.2); Lymphocytes # (Auto) 1.6 K/mm3 (1.2-5.4); Lymphocytes % (Auto) 19.7 % (13.4-35.0); Mean Corpuscular HGB Conc 33 % (32-34); Mean Corpuscular Volume 90 fl (84-94); Monocytes # (Auto) 0.5 K/mm3 (0.0-0.8); Monocytes % (Auto) 6.1 % (0.0-7.3); Platelet Count 208 K/mm3 (140-440); Red Blood Count 4.92 M/mm3 (3.65-5.03); Red Cell Distribution Width 14.8 % (13.2-15.2)
[2020-08-23 09:46] LABS: Alanine Aminotransferase 16 units/L (7-56); Albumin 3.8 g/dL (3.9-5); Blood Urea Nitrogen 12 mg/dL (9-20); Calcium 8.7 mg/dL (8.4-10.2); Hemolysis Index 7
--- NOTE | 2020-08-23 09:51 | XRay Report ---
CHEST 1 VIEW 08/23/2020 8:43 AM INDICATION / CLINICAL INFORMATION: Abdominal Pain /epigastric. COMPARISON: None available. FINDINGS: SUPPORT DEVICES: None. HEART / MEDIASTINUM: No significant abnormality. LUNGS / PLEURA: No significant pulmonary or pleural abnormality. No pneumothorax. ADDITIONAL FINDINGS: No significant additional findings. IMPRESSION: 1. No acute findings. Signer Name: Norberto Lee MD Signed: 08/23/2020 9:47 AM Workstation Name: [id number]
[2020-08-23 09:54] LABS: BUN/Creatinine Ratio 20; Bilirubin,Direct < 0.2 mg/dL (0-0.2)
--- NOTE | 2020-08-23 10:32 | Cat Scan Report ---
CT ABDOMEN AND PELVIS WITH CONTRAST HISTORY: Abdominal Pain /upper abd pain. COMPARISON: 10/02/2017 TECHNIQUE: CT images of the abdomen and pelvis were obtained following administration of intravenous contrast. All CT scans at this location are performed using CT dose reduction for ALARA by means of automated exposure control. CONTRAST: 100 ml of intravenous contrast administered. FINDINGS: Lungs/bones: Chronic changes are seen in the lung bases without focal consolidation. Abdomen/pelvis: Hypodensity in the expected region of the gallbladder could represent a contracted gallbladder or pos sibly gallbladder with thickened luis with surrounding inflammation best seen on axial image 77. Sonido rounding liver appears normal. Spleen, adrenal glands, pancreas and upper GI tract appear normal. Jony endix appears normal. No evidence for bowel obstruction. No dominant adenopathy is seen. Celiac and S MA appear patent. Bilateral kidneys appear normal without hydronephrosis. Urinary bladder is contract ed and evaluation of the bladder wall is limited. Degenerative changes seen throughout spine. Coronar y artery disease. IMPRESSION: 1. Abnormal appearance of the region of the gallbladder fossa and gallbladder. Gallbladder appears co ntracted with surrounding inflammation and wall thickening. A follow-up gallbladder ultrasound is rec ommended for further evaluation for cholecystitis. 2. No other acute findings are identified. Signer Name: Saul Wang MD Signed: 08/23/2020 10:27 AM Workstation Name: [id number]
[2020-08-23 10:37] LABS: Bilirubin,Urine NEG (Negative); Blood,Urine NEG (Negative); Color,Urine Yellow (Yellow); Mucus,Urine 1+ /HPF; Protein,Urine <15 mg/dL mg/dL (Negative); Urobilinogen,Urine < 2.0 mg/dL (<2.0)
--- NOTE | 2020-08-23 13:12 | Ultrasound Report ---
US abdomen limited INDICATION / CLINICAL INFORMATION: epigastric pain/concern for cholecystitis on CT. COMPARISON: CT done earlier today FINDINGS: Hepatic echogenicity is increased, consistent with hepatic steatosis. A normal gallbladder is not pura ntified. In the region of the gallbladder fossa, there is an area of its echogenicity with posterior shadowing, quite possibly a contracted gallbladder filled with stones. This correlates with the findi ngs on CT. Common duct is normal in size. IMPRESSION: 1. Findings are very suggestive of contracted gallbladder filled with stones. Signer Name: Rodney Ramachandran MD Signed: 08/23/2020 1:08 PM Workstation Name: [id number]
[2020-08-23 13:45] VITALS: BP 175/105
== END 2020-08-23 13:45 | disposition home or self-care (01) ==
LOC: ED 07:07
DX: K80.20 Calculus of gallbladder without cholecystitis without obstruction (principal); B35.4 Tinea corporis; I10 Essential (primary) hypertension; F17.200 Nicotine dependence, unspecified, uncomplicated; Z79.899 Other long term (current) drug therapy
CPT/HCPCS: 36415; 71045; 74177; 76705; 80048; 80076; 81001; 83690; 84484; 85025; 93005; 96361; 96374; 99284; J2405; J7030; Q9967